=== PATIENT | female | born 1985 | race Hispanic/Latino ===

== ENCOUNTER 2025-02-12 14:58 | Emergency (ER) | payer BC ==
[~2025-02-12] VITALS: Ht 162.6 cm; Wt 84.4 kg
[2025-02-12 15:28] LABS: IMMATURE GRANULOCYTE ABSOLUTE 0.02 K/uL (0-1); NUCLEATED RED BLOOD CELLS 0.0 % (0.0-0.19); PLATELET COUNT (AUTO) 280 K/uL (130-400); RED BLOOD CELL COUNT(AUTO) 4.40 MIL/uL (4.00-5.50); RED CELL DISTRIBUTION WIDTH 15.7 % (11.0-15.5); WHITE BLOOD COUNT (AUTO) 7.5 K/uL (4.8-10.8)
[2025-02-12 15:35] LABS: CREATININE 0.8 mg/dL (0.5-1.0); GLOMERULAR FILTR. RATE CALC 95.0 mL/min (>90); GLUCOSE,RANDOM 94.0 mg/dL (70-105); SODIUM SERUM 138.0 mmol/L (136-145); UREA NITROGEN, BLOOD 12.0 mg/dL (7-18)
[2025-02-12 15:35] LABS: APPEARANCE,URINE CLEAR (CLEAR); GLUCOSE, URINE (UA) NEGATIVE (NEGATIVE); LEUKOCYTE ESTERASE ,URINE NEGATIVE Leu/uL (NEGATIVE); NITRATE,URINE NEGATIVE (NEGATIVE); OCCULT BLOOD,URINE NEGATIVE (NEGATIVE)
[2025-02-12 15:36] LABS: ADD UA MICROSCOPIC NO
[2025-02-12 15:38] LABS: HCG,QUALITATIVE URINE NEGATIVE (NEGATIVE)
[2025-02-12 15:46] LABS: HCG,QUANTITATIVE 0.0 mIU/mL (0-5)
[2025-02-12] MEDS: LACTATED RINGERS 1000ML 1,000 ML IV ONE (15:58)
--- NOTE | 2025-02-12 16:59 | NUR ---
PT IN CT AT THIS TIME
--- NOTE | 2025-02-12 17:27 | ERN ---
General Chief Complaint: Abdominal Pain Stated Complaint: ABD PAIN Time Seen by MD: 15:03 Source: patient, family History of Present Illness Initial Comments Patient is a 39-year-old female coming in complaining of lower abdominal pain. Patient states that the pain radiates to the left side of her flank as well as a right side. She also states that she does has a history of kidney stones. ALong with this she states he has been having rectal pain. Allergies: Coded Allergies: No Known Drug Allergies (Unverified Allergy, Unknown, 02/12/25) Past Medical History Past Medical History: Cancer Past Surgical History: Other Surgical History Other: SKIN BX ROS Dictation CONSTITUTIONAL: No chills, no fever, no weakness, no diaphoresis, no malaise. HEAD/FACE: No signs of trauma. EENT: No eye pain, no blurred vision, no tearing, no double vision, no ear pain, no ear discharge, no nose pain, no nasal congestion, no throat pain, no throat swelling, no mouth pain. RESPIRATORY: No cough, no orthopnea, no SOB, no stridor, no wheezing. CARDIOVASCULAR: No chest pain, no edema, no palpitations, no syncope. GASTROINTESTINAL/ABDOMINAL: abdominal pain, no constipation, no diarrhea, no nausea, no vomiting. GENITOURINARY: No abnormal discharge, no dysuria, no frequent urination, no hematuria. No complaints of pain in the genitals. MUSCULOSKELETAL: No back pain, no gout, no joint pain, no joint swelling, no muscle pain, no muscle stiffness, no neck pain. INTEGUMENTARY: No change in color, no change in hair/nails, no dryness, no lesion, no lumps, no rash. NEUROLOGICAL/PSYCH: No anxiety, not depressed, no emotional problem, no headache, no numbness, no pre-existing deficit, no history of seizures, no tremors, no weakness. HEMATOLOGIC/LYMPHATIC: Not anemic, no history of blood clots, no apparent bleeding, no bruising, glands not swollen. All Systems Negative, Except as Noted. Physical Exam Physical Exam Dictation VITAL SIGNS: Reviewed. GENERAL APPEARANCE: Alert, oriented x3, no acute distress, obese. HEAD AND FACE: Non-traumatic. EYES: PERRL, pink conjunctivas, eyelid no trauma, anterior chamber clear. EARS: Pinnas intact and no signs of trauma or erythema. Ear canals clear and no discharge. TMs no erythema. NOSE: No discharge, no bleeding. OROPHARYNX: Mouth normal, teeth no caries, tongue pink. Pharynx clear, no erythema. Tonsils no exudates, no abscesses noted. Mucous membrane moist. NECK: Supple, non-tender, no thyromegaly, no masses, no JVD, no bruits. BREAST: Deferred. CHEST: No tenderness, no crepitus, no paradoxical movement, no retractions. LUNGS: Clear, well-ventilated, symmetric, no rales, no wheezing, no rhonchi, no stridor, good breath sounds bilaterally. HEART: Regular rate, regular rhythm, no murmur, no gallops. VASCULAR: No peripheral edema. ABDOMEN: Soft, positive bowel sounds, nondistended, no guarding, lower abdominal pain, no rebound, no masses no hepatomegaly, no splenomegaly, no Eugene's sign, no hernias. RECTAL: Deferred. GENITAL: Deferred. NEUROLOGICAL: Normal speech, gross motor function intact, gross sensory function intact. MUSCULOSKELETAL: Neck nontender, full range of motion, back nontender, full range of motion. EXTREMITIES: Nontender, full range of motion. SKIN: Color pink, dry, no turgor, no rash, no lacerations, no abrasions, no contusions. LYMPHATICS: Deferred. Results Laboratory and Microbiology Lab and Micro Result Laboratory Tests Test 02/12/25 15:16 02/12/25 15:23 White Blood Count 7.5 K/uL (4.8-10.8) Red Blood Count 4.40 MIL/uL (4.00-5.50) Hemoglobin 11.3 g/dL (12.0-16.0) L Hematocrit 36.0 % (36-48) Mean Corpuscular Volume 81.8 fL (79-99) Mean Corpuscular Hemoglobin 25.7 pg (27.0-33.0) L Mean Corpuscular Hemoglobin Concent 31.4 g/dL (32.0-36.0) L Red Cell Distribution Width 15.7 % (11.0-15.5) H Platelet Count 280 K/uL (130-400) Mean Platelet Volume 9.6 fL (7.5-10.5) Immature Granulocyte % (Auto) 0.3 % (0-1) Neutrophils (%) (Auto) 55.2 % (40.0-77.0) Lymphocytes (%) (Auto) 35.8 % (21.0-51.0) Monocytes (%) (Auto) 7.1 % (3.0-13.0) Eosinophils (%) (Auto) 1.2 % (0.0-8.0) Basophils (%) (Auto) 0.4 % (0.0-5.0) Neutrophils # (Auto) 4.1 K/uL (1.8-7.7) Lymphocytes # (Auto) 2.7 K/uL (1.0-4.8) Monocytes # (Auto) 0.5 K/uL (0.1-1.0) Eosinophils # (Auto) 0.09 K/uL (0.00-0.70) Basophils # (Auto) 0.03 K/uL (0.00-0.20) Absolute Immature Granulocyte (auto 0.02 K/uL (0-1) Nucleated Red Blood Cells 0.0 % (0.0-0.19) Sodium Level 138 mmol/L (136-145) Potassium Level 3.5 mmol/L (3.5-5.1) Chloride Level 103 mmol/L (101-111) Carbon Dioxide Level 27 mmol/L (21-32) Blood Urea Nitrogen 12 mg/dL (7-18) Creatinine 0.8 mg/dL (0.5-1.0) Glomerular Filtration Rate Calc 95 mL/min (>90) Random Glucose 94 mg/dL (70-105) Total Calcium 8.6 mg/dL (8.5-10.1) Human Chorionic Gonadotropin, Quant 0 mIU/mL (0-5) Urine Color LIGHT-YELLOW (YELLOW) Urine Appearance CLEAR (CLEAR) Urine pH 6.0 (5.0-8.0) Urine Specific [place] 1.027 (1.001-1.031) Urine Protein NEGATIVE mg/dL (NEGATIVE) Urine Glucose (UA) NEGATIVE mg/dL (NEGATIVE) Urine Ketones NEGATIVE mg/dL (NEGATIVE) Urine Occult Blood NEGATIVE (NEGATIVE) Urine Nitrate NEGATIVE (NEGATIVE) Urine Bilirubin NEGATIVE mg/dL (NEGATIVE) Urine Urobilinogen 0.2 mg/dL (0.2-1.0) Urine Leukocyte Esterase NEGATIVE [place]/uL Urine HCG, Qualitative NEGATIVE (NEGATIVE) Labs Reviewed?: Yes EKG/XRAY/US/CT/MRI CT Scan Comment [facility] [address] [place], [place] [id number] IMAGING REPORT Signed PATIENT: NEGAR LOPEZ MR#: [id number] : 1985 SEX: F AGE: 39 LOCATION: [facility] ORDER 1550 STATUS: [facility] ER REPORT#: [id number] SERVICE 1548 REASON: lower abd pain/ rectal pain ORDERING PHYSICIAN: BUBBA RODRÍGUEZ MD PROCEDURE: ABD PEL WO - CT ABDOMEN/PELVIS W/O CONTRAST EXAM: CT Abdomen and Pelvis Without IV contrast CLINICAL HISTORY: lower abd pain/ rectal pain TECHNIQUE: Axial computed tomography images of the abdomen and pelvis without intravenous contrast. CONTRAST: No IV contrast. COMPARISON: None provided. FINDINGS: LUNG BASES: The lung bases appear clear. No pleural effusions are seen. LIVER: Unremarkable. GALLBLADDER AND BILE DUCTS: Cholecystectomy. PANCREAS: Unremarkable. SPLEEN: Unremarkable. ADRENAL GLANDS: Unremarkable. KIDNEYS, URETERS, AND BLADDER: No urinary calculi. No hydronephrosis. STOMACH AND BOWEL: No bowel obstruction or inflammation. APPENDIX: Normal appendix. PERITONEUM: No free fluid. No free air. LYMPH NODES: No lymphadenopathy is evident. REPRODUCTIVE: Enlarged uterus with a 3 cm rounded hypodensity which likely represents a fibroid. VASCULATURE: No evidence of abdominal aortic aneurysm. BONES: No aggressive appearing osseous lesion. No acute osseous pathology evident. IMPRESSION: 1. Enlarged uterus with a 3 cm rounded hypodensity which likely represents a fibroid. If indicated, further evaluation with ultrasound can be performed. 2. No bowel obstruction or inflammation. Normal appendix. 3. No urinary calculi. No hydronephrosis. /[place] DICTATED BY: TK RAINEY MD DATE: 02/12/251829 ELECTRONICALLY SIGNED BY: TK RAINEY MD DATE: 02/12/251829 [facility] MDM: Differential diagnosis: Uterine fibroid, constipation, Rationale: Tests considered and ordered secondary to shared decision making include: Previous outside records reviewed: Old ER visits. Risk of complication and/or morbidity or mortality of patient management: None Medications-Per medication reconciliation Need for hospitalization: Patient does not meet criteria for hospitalization. Need for emergency major/minor surgery: No Patient is a 39-year-old female coming in complaining of lower abdominal pain. CT disclose a uterine fibroid. I did educate patient on proper follow up with OBGYN. Patient states that she was told she has a constipation in the past and I will be provided medication for symptomatic relief as well. ED Course Orders Procedure Category Date Status Time Cbc With Differential LAB 02/12/25 Complete 15:06 Hcg,Quantitative LAB 02/12/25 Complete 15:06 ,Urine Test LAB 02/12/25 Complete 15:06 Urinalysis Profile LAB 02/12/25 Complete 15:06 Lactated Ringers PHA 02/12/25 Complete 1000ml (Lactated 15:30 Basic Metabolic Panel LAB 02/12/25 Complete 15:06 Acetaminophen 500mg PHA 02/12/25 Complete Tab (Tylenol 500mg T 15:30 Ct Abdomen/Pelvis W/O CT 02/12/25 Resulted Contrast 15:48 Current Medications Medications (Trade) Dose Ordered Sig/Hannah Route PRN Reason Start Time Stop Time Status Last Admin Dose Admin Acetaminophen (TYLenol 500MG TAB) 1,000 mg ONCE ONCE PO 02/12/25 15:30 02/12/25 15:31 DC 02/12/25 15:58 Lactated Ringer's 1,000 ml @ 0 mls/hr ONCE ONCE IV 02/12/25 15:30 02/12/25 15:31 DC 02/12/25 15:58 Vital Signs Date Time Temp Pulse Resp B/P (MAP) Pulse Ox O2 Delivery O2 Flow Rate FiO2 02/12/25 16:17 98.2 97 18 125/66 100 Room Air* 0 21 02/12/25 15:02 98.2 86 18 117/65 100 Room Air 0 DX & DISP Disposition: Discharge Departure Impression: Primary Impression: Uterine fibroid Additional Impression: Constipation Condition: Stable Scripts Naproxen (Naproxen) 500 Mg Tablet. 500 MG PO BID for 7 Days, #14 TAB Prov: BUBBA RODRÍGUEZ MD 02/12/25 Linaclotide (Linzess) 145 Mcg Capsule 1 CAP PO DAILY for 30 Days, #30 CAP 0 Refills Prov: BUBBA RODRÍGUEZ MD 02/12/25 Additional Instructions: FOLLOW-UP WITH PRIMARY CARE PROVIDER IN 1 TO 2 DAYS. TAKE MEDICATIONS DIRECTED HERE IN THE EMERGENCY ROOM. OKAY TO CONTINUE HOME MEDICATIONS UNLESS OTHERWISE DISCUSSED DURING YOUR VISIT IN THE EMERGENCY ROOM TODAY. RETURN TO YOUR NEAREST EMERGENCY ROOM IF SYMPTOMS WORSEN OR IF THERE IS NO IMPROVEMENT. CALL 911 IF YOU NEED IMMEDIATE ASSISTANCE. TAKE TYLENOL [id number]-[id number]-[id number] NEEDED AND IF NO CONTRAINDICATIONS ARE PRESENT. INCREASE ORAL HYDRATION. A WOUND CULTURE OR URINE CULTURE WAS ORDERED HERE IN THE EMERGENCY ROOM DEPARTMENT PLEASE FOLLOW-UP WITH PRIMARY CARE PROVIDER AND ADVISE THEM TO GET REPORTS FROM OUR FACILITY. IF YOU HAD ANY YAMILE WRAP/SPLINTS THAT WERE APPLIED HERE, PLEASE DO NOT REMOVE THEM UNTIL YOU SEE YOUR PRIMARY CARE OR SPECIALTY. Referrals: Referrals: ANATOLY TIWARI (PCP) Time of Disposition: 17:59 BUBBA RODRÍGUEZ MD Feb 12, 2025 17:27
--- NOTE | 2025-02-12 17:31 | HMCIMG ---
EXAM: CT Abdomen and Pelvis Without IV contrast CLINICAL HISTORY: lower abd pain/ rectal pain TECHNIQUE: Axial computed tomography images of the abdomen and pelvis without intravenous contrast. CONTRAST: No IV contrast. COMPARISON: None provided. FINDINGS: LUNG BASES: The lung bases appear clear. No pleural effusions are seen. LIVER: Unremarkable. GALLBLADDER AND BILE DUCTS: Cholecystectomy. PANCREAS: Unremarkable. SPLEEN: Unremarkable. ADRENAL GLANDS: Unremarkable. KIDNEYS, URETERS, AND BLADDER: No urinary calculi. No hydronephrosis. STOMACH AND BOWEL: No bowel obstruction or inflammation. APPENDIX: Normal appendix. PERITONEUM: No free fluid. No free air. LYMPH NODES: No lymphadenopathy is evident. REPRODUCTIVE: Enlarged uterus with a 3 cm rounded hypodensity which likely represents a fibroid. VASCULATURE: No evidence of abdominal aortic aneurysm. BONES: No aggressive appearing osseous lesion. No acute osseous pathology evident. IMPRESSION: 1. Enlarged uterus with a 3 cm rounded hypodensity which likely represents a fibroid. If indicated, further evaluation with ultrasound can be performed. 2. No bowel obstruction or inflammation. Normal appendix. 3. No urinary calculi. No hydronephrosis. /[place]
[2025-02-12] MEDS ORDERED: NAPR-1506 PO (18:00)
[2025-02-12] MEDS ORDERED: LINA145C PO (18:00)
[2025-02-12 18:39] VITALS: BP 121/65; PULSE 88; RESP 18; TEMP 98.2; O2SAT 100
== END 2025-02-12 18:55 | disposition home or self-care (01) ==
LOC: EDH 14:58
DX: D25.9 Leiomyoma of uterus, unspecified (principal); K59.00 Constipation, unspecified; K62.89 Other specified diseases of anus and rectum; R10.2 Pelvic and perineal pain; Z87.442 Personal history of urinary calculi
CPT/HCPCS: 99284; 74176; 96360; 80048; 84702; 85025; 81003; 81025; 36415; 96372; J1885; J7120